=== PATIENT | female | born 1940 | race Caucasian/White ===

== ENCOUNTER → 2019-07-09 11:00 | Outpatient (BNVA) | payer MEDICARE, SELFPAY | PROVIDERS: Family Provider Family Medicine; Visit Provider Internal Medicine | DX: E11.9 Type 2 diabetes mellitus without complications (principal); K75.81 Nonalcoholic steatohepatitis (NASH); E78.5 Hyperlipidemia, unspecified; I10 Essential (primary) hypertension; E03.9 Hypothyroidism, unspecified; K21.9 Gastro-esophageal reflux disease without esophagitis; N39.41 Urge incontinence | CPT/HCPCS: 80053; 80061; 83036; 84443 ==

== ENCOUNTER 2019-07-16 13:34 | Outpatient (CLI) | payer MEDICARE, SELFPAY ==
--- NOTE | 2019-07-16 13:30 | MM_ITS ---
WS: [id number] BILATERAL SCREENING DIGITAL MAMMOGRAM WITH CAD HISTORY: Screening. COMPARISON: 07/17/2016 and 09/03/2013 Bilateral CC and MLO views submitted. Computer aided detection analyzed. Breast composition: There are scattered areas of fibroglandular density. No suspicious masses, microc alcifications or architectural distortion. Vascular calcifications. No change in the fibroglandular p attern. MM/[id number] IMPRESSION: BI-RADS: 2-Benign FOLLOW UP: 1 Year Follow-up
== END 2019-07-16 13:35 | disposition home or self-care (01) ==
PROVIDERS: PCP Internal Medicine; Visit Provider Internal Medicine
DX: Z12.31 Encounter for screening mammogram for malignant neoplasm of breast (principal)
CPT/HCPCS: 77067

== ENCOUNTER → 2020-01-12 15:27 | Outpatient (BNVA) | payer MEDICARE, SELFPAY | PROVIDERS: PCP Internal Medicine; Visit Provider Internal Medicine | DX: E11.42 Type 2 diabetes mellitus with diabetic polyneuropathy (principal) | CPT/HCPCS: 83036 ==

== ENCOUNTER → 2020-07-06 09:00 | Outpatient (BNVA) | payer MEDICARE, SELFPAY | PROVIDERS: PCP Internal Medicine; Visit Provider Internal Medicine | DX: R63.4 Abnormal weight loss (principal); E11.42 Type 2 diabetes mellitus with diabetic polyneuropathy; E03.9 Hypothyroidism, unspecified | CPT/HCPCS: 80053; 83550; 84443; 85025 ==

== ENCOUNTER → 2020-08-02 12:22 | Outpatient (BNVA) | payer MEDICARE, SELFPAY | PROVIDERS: PCP Internal Medicine; Visit Provider Internal Medicine | DX: E61.1 Iron deficiency (principal); Z20.822 Contact with and (suspected) exposure to COVID-19 | CPT/HCPCS: 87635 ==

== ENCOUNTER 2020-08-08 08:21 | Day surgery (SDC) | payer MEDICARE, SELFPAY ==
[2020-08-05 07:23] VITALS: BMI 22.7
--- NOTE | 2020-08-08 08:59 | ANES.PREANE2 ---
Pre-Anesthetic Assessment Pre-Anesthetic Assessment: Height/Weight: Height 1.68 m Weight 63.957 kg Preop Diagnosis: anemia Proposed Procedure: Operation Date: 08/08/20 10:00 Proposed Procedures p EGD 68194 61322 z12.11 e61.1(Not Applicable) - Prince Augustin MD s Colonoscopy(Not Applicable) - Prince Augustin MD Familial anesthetic complications: NOne Was Beta Tavia taken within 24 hours: Yes Was Clonidine taken within 24 hours: N/A Last intake: > 8 hrs Social: Social History: No alcohol and No tobacco Exam: Pre-Anes Outpt Exam: alert, oriented x 3, clear to auscultation bilaterally and regular rate & rhythm Airway: Cervical ROM: WNL MP: 1 Dentition: Chipped CV/HEM: CV/HEM: CAD (cABG and Stent- still takes clopidogrel) and HTN Comments: SOB w/ 4 METS, no chest pains 2015 echo CONCLUSIONS 1-Normal left ventricular cavity size. Mild left ventricular hypertrophy of concentric type. Mildly decreased left ventricular systolic function. Left ventricular ejection fraction is estimated at 50 %. Global left ventricular hypokinesis. Grade I/IV diastolic dysfunction (abnormal relaxation filling pattern), normal to mildly elevated filling pressures. 2-Moderately increased left atrial size. 3-Mildly thickened mitral valve. Moderate mitral annular calcification. No mitral valve stenosis. Trace mitral valve regurgitation. 4-There is no pericardial effusion. 5-Pulmonary artery systolic pressure is within normal limits. 6-Right atrial pressure is around 5 mm of mercury. 7-There are no prior echocardiogram studies to compare. GI: GI: GERD Metabolic: Metabolic: DM and Thyroid Anesthetic Plan: ASA status: 3 Anesthesia: MAC Risk of > 500 ml blood loss (7ml/kg in children): No PFSH Anesthesia PFSH: Medical History GERD (gastroesophageal reflux disease) History of small bowel obstruction Hyperlipidemia, unspecified Hypothyroidism Surgical History H/O bladder repair surgery x3 H/O colonoscopy History of appendectomy History of cataract surgery History of coronary artery bypass graft (~1998) History of D&C History of esophagogastroduodenoscopy (EGD) (~05/27/13) History of heart artery stent History of hysterectomy History of throat surgery (~1964) removal of precancerous growth removed Status post debridement of bone spur Family History Father Alzheimers disease Social History Smoking and tobacco status: former smoker Alcohol intake: never Household members: spouse Housing: House Marital status: History of recent travel: No Data Anesthesia Cardiac Studies: No Data to Display
[2020-08-08 09:30] VITALS: BP 180/76; PULSE 68; RESP 18; TEMP 36.6; O2SAT 95
[2020-08-08] MEDS: sodium chloride 0.9% 1,000 ML 30 ML IV (09:38)
--- NOTE | 2020-08-08 09:40 | P.HP_ITS ---
Same Day Surgery H&P Indication for Procedure/HPI DATE OF PROCEDURE: August 08, 2020 CHIEF COMPLAINT/INDICATIONFOR SURGICAL PROCEDURE: Anemia, iron deficiency iron deficiency anemia PREOP DIAGNOSIS: fe def PLANNED PROCEDRUE: Operation Date: 08/08/20 10:00 Proposed Procedures p EGD [id number] z12.11 e61.1(Not Applicable) - Prince Augustin MD s Colonoscopy(Not Applicable) - Prince Augustin MD Medications/Allergies* Home Medications Medication Instructions Recorded Confirmed Type cholecalciferol (vitamin D3) 50 2,000 unit PO QDAY 03/17/19 08/08/20 History mcg (2,000 unit) tablet docusate sodium 250 mg capsule 250 mg PO BID 03/18/19 08/08/20 History nitroglycerin 400 mcg/spray 1 spray SUBLINGUAL Q5M PRN 03/18/19 08/08/20 History translingual Allergies/Adverse Reactions Allergy/AdvReac Type Severity Reaction Status Date / Time codeine Allergy Unknown Verified 08/08/20 09:20 pentazocine [From Talwin] Allergy Unknown Verified 08/08/20 09:20 Current Medications: Generic Name Dose Route Start Last Admin Trade Name Freq PRN Reason Stop Dose Admin Sodium Chloride 1,000 mls @ 30 mls/hr 08/08/20 09:15 08/08/20 09:38 Sodium Chloride 0.9% IV 30 mls/hr .Q24H NAVEEN Administration Pertinent History/Comorbid Conditions* Medical History (Updated 07/27/20 @ 10:42 by Prince Augustin MD) GERD (gastroesophageal reflux disease) History of small bowel obstruction Hyperlipidemia, unspecified Hypothyroidism Surgical History (Updated 12/15/19 @ 09:42 by Julius Hodgson DPM) H/O bladder repair surgery x3 H/O colonoscopy History of appendectomy History of cataract surgery History of coronary artery bypass graft (~1998) History of D&C History of esophagogastroduodenoscopy (EGD) (~05/27/13) History of heart artery stent History of hysterectomy History of throat surgery (~1964) removal of precancerous growth removed Status post debridement of bone spur Family History (Updated 03/17/19 @ 08:24 by Milagros Almanzar LPN) Alzheimers disease Father Social History Smoking and tobacco status: former smoker Alcohol intake: never Household members: spouse Housing: House Marital status: History of recent travel: No Pertinent Exam Findings alert, oriented x 3, clear to auscultation bilaterally, regular rate & rhythm, operative site marked and procedure specific exam findings Recommendations Surgery/Procedure today Coding Level of Care Code Acute Administrative Appeals Tribunal Member for Lynette Nair
[2020-08-08] MEDS: ferric carboxy (IVPB) 750 MG in sodium chloride 0.9% (100 ml) 100 ML 345 MG IV (10:08)
[2020-08-08 12:06] VITALS: BP 112/57; PULSE 68; RESP 18; TEMP 36.8; O2SAT 98
[2020-08-08 12:20] VITALS: BP 118/82; PULSE 74; RESP 18; TEMP 36.2; O2SAT 98
--- NOTE | 2020-08-08 15:48 | ANE.PACU2 ---
Inpatient post-anesthesia follow up: Airway intact: Yes Vital signs: Temperature 97.2 F Pulse Rate 74 Respiratory Rate 18 Blood Pressure 118/82 Pulse Oximetry 98 Oxygen Delivery Me thod Room Air Oxygen Flow Rate Fraction of Inspir ed Oxygen Hydration adequate: Yes Nausea and vomiting: No Pain level: 1 Mental status: Baseline
== END 2020-08-08 13:25 | disposition home or self-care (01) ==
PROVIDERS: PCP Internal Medicine; Visit Provider Internal Medicine
PROC: 0DJ08ZZ Inspection of Upper Intestinal Tract, Via Natural or Artificial Opening Endoscopic (ICD-10-PCS; CPT 43235; principal; 2020-08-08 10:00)
PROC: 0DJD8ZZ Inspection of Lower Intestinal Tract, Via Natural or Artificial Opening Endoscopic (ICD-10-PCS; CPT 45378; 2020-08-08 10:00)
DX: Z12.11 Encounter for screening for malignant neoplasm of colon (principal); K57.30 Diverticulosis of large intestine without perforation or abscess without bleeding; K63.89 Other specified diseases of intestine; I25.10 Atherosclerotic heart disease of native coronary artery without angina pectoris; Z95.1 Presence of aortocoronary bypass graft; Z95.5 Presence of coronary angioplasty implant and graft; I10 Essential (primary) hypertension; K21.9 Gastro-esophageal reflux disease without esophagitis; E11.9 Type 2 diabetes mellitus without complications; E78.5 Hyperlipidemia, unspecified; E03.9 Hypothyroidism, unspecified
CPT/HCPCS: 43239; 45378; 88305; 96361; 96365; J1439; J2704; J7030

== ENCOUNTER → 2020-08-08 | Day surgery (SDC) | payer MEDICARE, SELFPAY ==
[2020-08-08 09:40] LABS: Glucose Point of Care 72 mg/dL (70-110)
== END ==
PROVIDERS: PCP Internal Medicine; Visit Provider Internal Medicine
DX: Z01.818 Encounter for other preprocedural examination (principal)
CPT/HCPCS: 36416; 82962

== ENCOUNTER → 2020-08-15 12:06 | Day surgery (SDC) | payer MEDICARE, SELFPAY ==
[2020-08-15 12:16] VITALS: BP 126/51; PULSE 77; RESP 18; TEMP 36.4; O2SAT 99
[2020-08-15] MEDS: ferric carboxy (IVPB) 750 MG in sodium chloride 0.9% (100 ml) 100 ML 345 MG IV (12:34)
== END ==
PROVIDERS: PCP Internal Medicine; Visit Provider Internal Medicine
DX: E61.1 Iron deficiency (principal)
CPT/HCPCS: 96365; J1439

== ENCOUNTER → 2020-08-30 15:45 | Outpatient (BNVA) | payer MEDICARE, SELFPAY | PROVIDERS: PCP Internal Medicine; Visit Provider Internal Medicine | DX: E61.1 Iron deficiency (principal); R63.4 Abnormal weight loss; E11.42 Type 2 diabetes mellitus with diabetic polyneuropathy | CPT/HCPCS: 80061; 83550 ==

== ENCOUNTER → 2020-09-15 11:58 | Outpatient (BNVA) | payer MEDICARE, SELFPAY | PROVIDERS: PCP Internal Medicine; Visit Provider Nurse Practitioner Family | DX: J06.9 Acute upper respiratory infection, unspecified (principal) | CPT/HCPCS: 87426 ==

== ENCOUNTER 2020-09-18 16:23 | Emergency (ER) | payer MEDICARE, SELFPAY ==
[2020-09-18 16:40] VITALS: BP 161/84; PULSE 87; RESP 35; TEMP 36.3; O2SAT 96; BMI 20.7
--- NOTE | 2020-09-18 16:45 | ECG_ITS ---
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
--- NOTE | 2020-09-18 17:02 | W.ED.COVID ---
Documented by User: Carlton Chowdhury DO 09/18/20 18:14 HPI - COVID General: Chief Complaint: COVID symptoms Stated Complaint: confused,sob Time Seen by Provider: 09/18/20 16:43 Triage information: Has fever, cough or shortness of breath. Exposure to COVID + person last 14 days History of Present Illness: HPI Narrative: 79-year-old female presents emergency room with complaints of shortness of breath last several days she is extremely anxious she is appears to be hyperventilating at the time. She states she is scared and confused. Nurse found her to be alert and oriented on triage assessment. Her did test test positive for Covid recently she was tested with a rapid antigen 3 days ago and it was negative. MD complaint: reported COVID exposure and has COVID symptoms Prior covid testing: yes, results known Prior testing date: 09/15/20 COVID 19 common symptoms: positive fever(s), chills, cough, non-productive cough, dyspnea, fatigue, body aches, nasal congestion and nausea COVID 19 other sytmptoms: negative chest pain Onset (ago): day(s) Severity: mild Pertinent comorbid conditions: diabetes and heart disease Treatment prior to arrival: none COVID Results: SARS-CoV-2 Antigen (Rapid) Negative (Negative) 09/18/20 18:03 09/18/20 Nasal/Oral Coronavirus 2019 PCR Not detected 08/02/20 12:22 08/02/20 Review of Systems Const: Reports: fever(s), chills, body aches and fatigue ENMT: Reports: nasal congestion Card: Denies: chest pain, edema, dyspnea on exertion or orthopnea Resp: Reports: dyspnea and non-productive cough GI: Reports: nausea : Denies: flank pain, difficulty voiding, dysuria, urinary frequency or urinary urgency Skin/Breast: Denies: rash or pruritus PFSH ED PFSH: Medical History GERD (gastroesophageal reflux disease) History of small bowel obstruction Hyperlipidemia, unspecified Hypothyroidism Surgical History H/O bladder repair surgery x3 H/O colonoscopy History of appendectomy History of cataract surgery History of coronary artery bypass graft (~1998) History of D&C History of esophagogastroduodenoscopy (EGD) (~05/27/13) History of heart artery stent History of hysterectomy History of throat surgery (~1964) removal of precancerous growth removed Status post debridement of bone spur Family History Father Alzheimers disease Social History Smoking and tobacco status: former smoker Alcohol intake: never Household members: spouse Housing: House Marital status: History of recent travel: No Physical Exam Const: COMMON NORMALS: no acute distress GENERAL APPEARANCE: cooperative and comfortable ORIENTATION/CONSCIOUSNESS: Yes awake, Yes oriented to person, Yes oriented to place and Yes oriented to time HENMT: COMMON NORMALS: normocephalic, atraumatic and hearing grossly normal bilaterally HEAD & SCALP: normocephalic and atraumatic Neck/C-Spine: COMMON NORMALS: no JVD Resp: COMMON NORMALS: normal respiratory effort, No retractions, No use of accessory muscles and clear to auscultation bilaterally AUSCULTATION: clear to auscultation bilaterally Cardio: COMMON NORMALS: no JVD, regular rate, regular rhythm and No murmurs present (Cardio) RATE: regular rate RHYTHM: regular rhythm GI: COMMON NORMALS: Soft to palpation and No hepatosplenomegaly present AUSCULTATION: Yes normoactive bowel sounds PALPATION: Yes Soft to palpation, No Tenderness to palpation present (GI), No Guarding due to palpation present (GI) and Yes No hepatosplenomegaly present Extremity: COMMON NORMALS: normal to inspection, capillary refill normal, no clubbing, cyanosis or edema, no calf tenderness and no pedal edema Neuro: SENSORIUM/ORIENTATION: Yes oriented to person, Yes oriented to place and Yes oriented to time Skin: COMMON NORMALS: no rashes or lesions noted GENERAL SKIN EXAM: no rashes or lesions noted Course Vital Signs: Vital signs: Vital Signs Temperature 97.4 F L 09/18/20 16:40 Pulse Rate 88 09/18/20 21:09 Respiratory Rate 22 H 09/18/20 21:09 Blood Pressure 157/80 09/18/20 21:09 Pulse Oximetry 96 09/18/20 21:09 MDM - COVID MDM Narrative: Medical decision making narrative: Turned over to Dr. Kee at change of shift see his note for final diagnosis and disposition Lab Data: Labs: Lab Results 09/18/20 09/18/20 09/18/20 Range/Units 17:05 18:03 18:03 WBC 11.6 H (4.0-10.0) 10^3/ uL RBC 5.00 (4.1-5.3) 10^6/u L Hgb 13.8 (11.5-15.3) g/dL Hct 42.3 (37.0-47.0) % MCV 84.6 (81-99) fL MCH 27.6 L (28.0-34.0) pg MCHC 32.6 (30.0-36.0) g/dL RDW 19.2 H (12.1-15.1) % Plt Count 365 (130-400) 10^3/c mm MPV 9.6 (7.4-10.4) fL Neut % (Auto) 72.0 % Lymph % (Auto) 15.9 % Brooks % (Auto) 10.1 % Eos % (Auto) 1.2 % Baso % (Auto) 0.3 % Neut # (Auto) 8.36 H (1.8-7.7) 10^3/u L Lymph # (Auto) 1.9 (0.8-4.8) 10^3/u L Brooks # (Auto) 1.2 H (0.2-0.9) 10^3/u L Eos # (Auto) 0.1 (0.0-0.8) 10^3/u L Baso # (Auto) 0.0 (0.0-0.1) 10^3/u L Nucleated RBC % (a uto) 0 % Nucleated RBCs # 0.0 /100WBC Specimen Type Arterial Sample Site Brachial, right ABG pH 7.50 H (7.35-7.45) ABG pCO2 31.7 L (35-45) mmHg ABG pO2 61.8 L (80.0-100.0) mmH g ABG HCO3 24.9 (22-26) mmol/L ABG O2 Saturation 93.4 ABG Base Excess 2.4 H (-2.0-2.0) mmol/ L Dale Test Pos A-a O2 Gradient 6.3 (5-10) mmHg Hematocrit 42.4 (37-47) % Hgb O2 Saturation 91.8 L (95-100) % Carboxyhemoglobin 0.9 (0.4-20.1) %THgb Methemoglobin 0.9 (0.4-1.5) % Total Hemoglobin 13.8 (12-16) g/dL Sodium 131.0 (131-143) mmol/L Potassium 3.7 (3.5-5.0) mmol/L Glucose 228.0 H (70-115) mg/dL Ionized Calcium 1.1 (1.1-1.4) mmol/L O2 Delivery Device Room air Lip Cutter And Scorer ID jmn Chloride (98-107) mmol/L Carbon Dioxide (22-29) mmol/L Anion Gap (5-19) BUN (8-23) mg/dL Creatinine (0.5-0.9) mg/dL GFR Calculation Calculated Osmolal ity (285-295) mOsm/k g Lactic Acid 1.7 (0.5-2.2) mmol/L Calcium (8.5-10.5) mg/dL Total Bilirubin (0.15-1.2) mg/dL AST (0-32) U/L ALT (0-33) U/L Alkaline Phosphata se (35-105) IU/L Creatine Kinase (26-192) U/L Troponin T Baselin e (0-10) ng/L Total Protein (6.6-8.7) g/dL Albumin (3.5-5.2) g/dL Globulin (1.3-4.6) g/dL Lipase (13-60) U/L Urine Color (Yellow) Urine Appearance (CLEAR) Urine pH (5-7) Ur Specific Gravit y (1.005-1.030) Urine Protein (Negative) Urine Glucose (UA) (Normal) Urine Ketones (Negative) Urine Blood (Negative) Urine Nitrate (Negative) Urine Bilirubin (Negative) Urine Urobilinogen (Negative) mg/dL Ur Leukocyte Tamiko ase (Negative) Urine RBC (0-2) /hpf Urine WBC (0-5) /hpf Ur Squamous Epith Cells (0-5) /hpf Amorphous Sediment Urine Bacteria (NONE) /hpf SARS-CoV-2 Ag (Rap id) (Negative) 09/18/20 09/18/20 09/18/20 Range/Units 18:03 18:03 18:03 WBC (4.0-10.0) 10^3/ uL RBC (4.1-5.3) 10^6/u L Hgb (11.5-15.3) g/dL Hct (37.0-47.0) % MCV (81-99) fL MCH (28.0-34.0) pg MCHC (30.0-36.0) g/dL RDW (12.1-15.1) % Plt Count (130-400) 10^3/c mm MPV (7.4-10.4) fL Neut % (Auto) % Lymph % (Auto) % Brooks % (Auto) % Eos % (Auto) % Baso % (Auto) % Neut # (Auto) (1.8-7.7) 10^3/u L Lymph # (Auto) (0.8-4.8) 10^3/u L Brooks # (Auto) (0.2-0.9) 10^3/u L Eos # (Auto) (0.0-0.8) 10^3/u L Baso # (Auto) (0.0-0.1) 10^3/u L Nucleated RBC % (a uto) % Nucleated RBCs # /100WBC Specimen Type Sample Site ABG pH (7.35-7.45) ABG pCO2 (35-45) mmHg ABG pO2 (80.0-100.0) mmH g ABG HCO3 (22-26) mmol/L ABG O2 Saturation ABG Base Excess (-2.0-2.0) mmol/ L Dale Test A-a O2 Gradient (5-10) mmHg Hematocrit (37-47) % Hgb O2 Saturation (95-100) % Carboxyhemoglobin (0.4-20.1) %THgb Methemoglobin (0.4-1.5) % Total Hemoglobin (12-16) g/dL Sodium 130 L (131-143) mmol/L Potassium 4.0 (3.5-5.0) mmol/L Glucose 197 H (70-115) mg/dL Ionized Calcium (1.1-1.4) mmol/L O2 Delivery Device Lip Cutter And Scorer ID Chloride 93 L (98-107) mmol/L Carbon Dioxide 24 (22-29) mmol/L Anion Gap 17.0 (5-19) BUN 11 (8-23) mg/dL Creatinine 0.7 (0.5-0.9) mg/dL GFR Calculation Not Reportable Calculated Osmolal ity 275 L (285-295) mOsm/k g Lactic Acid (0.5-2.2) mmol/L Calcium 8.5 (8.5-10.5) mg/dL Total Bilirubin 0.4 (0.15-1.2) mg/dL AST 14 (0-32) U/L ALT 11 (0-33) U/L Alkaline Phosphata se 102 (35-105) IU/L Creatine Kinase 32 (26-192) U/L Troponin T Baselin e 14 H (0-10) ng/L Total Protein 6.9 (6.6-8.7) g/dL Albumin 3.5 (3.5-5.2) g/dL Globulin 3.4 (1.3-4.6) g/dL Lipase 23 (13-60) U/L Urine Color (Yellow) Urine Appearance (CLEAR) Urine pH (5-7) Ur Specific Gravit y (1.005-1.030) Urine Protein (Negative) Urine Glucose (UA) (Normal) Urine Ketones (Negative) Urine Blood (Negative) Urine Nitrate (Negative) Urine Bilirubin (Negative) Urine Urobilinogen (Negative) mg/dL Ur Leukocyte Tamiko ase (Negative) Urine RBC (0-2) /hpf Urine WBC (0-5) /hpf Ur Squamous Epith Cells (0-5) /hpf Amorphous Sediment Urine Bacteria (NONE) /hpf SARS-CoV-2 Ag (Rap id) Negative (Negative) 09/18/20 Range/Units 18:45 WBC (4.0-10.0) 10^3/ uL RBC (4.1-5.3) 10^6/u L Hgb (11.5-15.3) g/dL Hct (37.0-47.0) % MCV (81-99) fL MCH (28.0-34.0) pg MCHC (30.0-36.0) g/dL RDW (12.1-15.1) % Plt Count (130-400) 10^3/c mm MPV (7.4-10.4) fL Neut % (Auto) % Lymph % (Auto) % Brooks % (Auto) % Eos % (Auto) % Baso % (Auto) % Neut # (Auto) (1.8-7.7) 10^3/u L Lymph # (Auto) (0.8-4.8) 10^3/u L Brooks # (Auto) (0.2-0.9) 10^3/u L Eos # (Auto) (0.0-0.8) 10^3/u L Baso # (Auto) (0.0-0.1) 10^3/u L Nucleated RBC % (a uto) % Nucleated RBCs # /100WBC Specimen Type Sample Site ABG pH (7.35-7.45) ABG pCO2 (35-45) mmHg ABG pO2 (80.0-100.0) mmH g ABG HCO3 (22-26) mmol/L ABG O2 Saturation ABG Base Excess (-2.0-2.0) mmol/ L Dale Test A-a O2 Gradient (5-10) mmHg Hematocrit (37-47) % Hgb O2 Saturation (95-100) % Carboxyhemoglobin (0.4-20.1) %THgb Methemoglobin (0.4-1.5) % Total Hemoglobin (12-16) g/dL Sodium (131-143) mmol/L Potassium (3.5-5.0) mmol/L Glucose (70-115) mg/dL Ionized Calcium (1.1-1.4) mmol/L O2 Delivery Device Lip Cutter And Scorer ID Chloride (98-107) mmol/L Carbon Dioxide (22-29) mmol/L Anion Gap (5-19) BUN (8-23) mg/dL Creatinine (0.5-0.9) mg/dL GFR Calculation Calculated Osmolal ity (285-295) mOsm/k g Lactic Acid (0.5-2.2) mmol/L Calcium (8.5-10.5) mg/dL Total Bilirubin (0.15-1.2) mg/dL AST (0-32) U/L ALT (0-33) U/L Alkaline Phosphata se (35-105) IU/L Creatine Kinase (26-192) U/L Troponin T Baselin e (0-10) ng/L Total Protein (6.6-8.7) g/dL Albumin (3.5-5.2) g/dL Globulin (1.3-4.6) g/dL Lipase (13-60) U/L Urine Color Yellow (Yellow) Urine Appearance Sl hazy (CLEAR) Urine pH 7 (5-7) Ur Specific Gravit y 1.005 (1.005-1.030) Urine Protein Neg (Negative) Urine Glucose (UA) 1+ (Normal) Urine Ketones Negative (Negative) Urine Blood Neg (Negative) Urine Nitrate Positive H (Negative) Urine Bilirubin Neg (Negative) Urine Urobilinogen Norm (Negative) mg/dL Ur Leukocyte Tamiko ase Trace H (Negative) Urine RBC None (0-2) /hpf Urine WBC 10-15 H (0-5) /hpf Ur Squamous Epith Cells 0-4 H (0-5) /hpf Amorphous Sediment Not Reportable Urine Bacteria 3+ H (NONE) /hpf SARS-CoV-2 Ag (Rap id) (Negative) COVID Results: SARS-CoV-2 Antigen (Rapid) Negative (Negative) 09/18/20 18:03 09/18/20 Nasal/Oral Coronavirus 2019 PCR Not detected 08/02/20 12:22 08/02/20 Discharge Plan Discharge Patient Disposition: Home Clinical Impression: Urinary tract infection Qualifiers: Urinary tract infection type: acute cystitis Hematuria presence: without hematuria Qualified Code(s): N30.00 - Acute cystitis without hematuria Condition: Stable Prescriptions: New Macrobid 100 mg capsule 100 mg PO Q12H 7 Days Qty: 14 RF: 0 No Action cholecalciferol (vitamin D3) 2,000 unit tablet 2,000 unit PO DAILY RF: 0 nitroglycerin 400 mcg/spray spray,non-aerosol See Rx Instructions .ROUTE .COMPLEX RF: 0 (DME) DIABETIC SHOES WITH MOLDED INSERTS See Rx Instructions .Route .MEDSUPPLY Qty: 1 RF: 0 (DME) lancets [Accu-Chek Softclix Lancets] Misc See Rx Instructions .ROUTE .MEDSUPPLY Qty: 100 RF: 6 Accu-Chek Kaye Plus test strp Strip See Rx Instructions .ROUTE .COMPLEX Qty: 100 RF: 0 (DME) pen needle, diabetic [Unifine Pentips] 32 gauge x 5/32 needle See Rx Instructions .ROUTE .MEDSUPPLY Qty: 100 RF: 5 Tylenol Extra Strength 500 mg Tablet 1,000 mg PO PRN RF: 0 Colace 100 mg Capsule 200 mg PO BEDTIME RF: 0 Dayquil Caps 2 cap PO PRN RF: 0 Nyquil Caps 2 cap PO PRN RF: 0 atorvastatin 40 mg tablet 40 mg PO QPM RF: 0 tolterodine 4 mg capsule,extended release 24hr 4 mg PO BEDTIME RF: 0 clopidogrel 75 mg tablet 75 mg PO QAM RF: 0 levothyroxine 25 mcg tablet 25 mcg PO QAM RF: 0 trazodone 300 mg tablet 300 mg PO BEDTIME RF: 0 irbesartan 150 mg tablet 150 mg PO DAILY@12 RF: 0 insulin detemir U-100 100 unit/mL (3 mL) insulin pen 12 unit SUBCUT BEDTIME RF: 0 Bystolic 5 mg tablet 2.5 mg PO QAM RF: 0 Dexilant 60 mg capsule,biphase delayed releas 60 mg PO QAM RF: 0 Discharge Orders: Discharge ED (Routine); Ordered 09/18/20 Ordered By: Abhi Kee Referrals: Prince Augustin MD [Primary Care Provider] - 1-3 days Patient Instructions: Urinary Tract Infection in Women (ED) Activity Restrictions/Additional Instructions: Return for fever greater than 100, worsening shortness of breath, worsening mental status, vomiting liquids or medications, any other concerning symptoms. A confirmatory test for COVID-19 has been sent, and should be back within 48 hours. Coding Level of Care Code ED Fractionating Still Operator for Chg Fwd Exam Comprehensive Documented by User: Abhi eKe DO 09/19/20 01:18 HPI - COVID General: Chief Complaint: COVID symptoms Stated Complaint: confused,sob Time Seen by Provider: 09/18/20 16:43 COVID Results: SARS-CoV-2 Antigen (Rapid) Negative (Negative) 09/18/20 18:03 09/18/20 Nasal/Oral Coronavirus 2019 PCR Not detected 08/02/20 12:22 08/02/20 [facility] ED PFS: Medical History GERD (gastroesophageal reflux disease) History of small bowel obstruction Hyperlipidemia, unspecified Hypothyroidism Surgical History H/O bladder repair surgery x3 H/O colonoscopy History of appendectomy History of cataract surgery History of coronary artery bypass graft (~1998) History of D&C History of esophagogastroduodenoscopy (EGD) (~05/27/13) History of heart artery stent History of hysterectomy History of throat surgery (~1964) removal of precancerous growth removed Status post debridement of bone spur Family History Father Alzheimers disease Social History Smoking and tobacco status: former smoker Alcohol intake: never Household members: spouse Housing: House Marital status: History of recent travel: No Course Vital Signs: Vital signs: Vital Signs Temperature 97.4 F L 09/18/20 16:40 Pulse Rate 88 09/18/20 21:09 Respiratory Rate 22 H 09/18/20 21:09 Blood Pressure 157/80 09/18/20 21:09 Pulse Oximetry 96 09/18/20 21:09 MDM - COVID MDM Narrative: Medical decision making narrative: 79-year-old lady with mild shortness of breath, some cough, and nervousness. Her has COVID-19. This will be her second negative antigen test today. Her chest x-ray is negative. Her white blood cell count is 11.6. Other laboratory is benign. Troponin is slightly elevated. The patient does not have any chest pain. Her EKG shows atrial fibrillation with no acute ST elevation or change otherwise. Conley is normal. Rate is controlled at 90. She does appear to have a nitrate positive urinary tract infection, which we will treat. Lab Data: Labs: Lab Results 09/18/20 09/18/20 09/18/20 Range/Units 17:05 18:03 18:03 WBC 11.6 H (4.0-10.0) 10^3/ uL RBC 5.00 (4.1-5.3) 10^6/u L Hgb 13.8 (11.5-15.3) g/dL Hct 42.3 (37.0-47.0) % MCV 84.6 (81-99) fL MCH 27.6 L (28.0-34.0) pg MCHC 32.6 (30.0-36.0) g/dL RDW 19.2 H (12.1-15.1) % Plt Count 365 (130-400) 10^3/c mm MPV 9.6 (7.4-10.4) fL Neut % (Auto) 72.0 % Lymph % (Auto) 15.9 % Brooks % (Auto) 10.1 % Eos % (Auto) 1.2 % Baso % (Auto) 0.3 % Neut # (Auto) 8.36 H (1.8-7.7) 10^3/u L Lymph # (Auto) 1.9 (0.8-4.8) 10^3/u L Brooks # (Auto) 1.2 H (0.2-0.9) 10^3/u L Eos # (Auto) 0.1 (0.0-0.8) 10^3/u L Baso # (Auto) 0.0 (0.0-0.1) 10^3/u L Nucleated RBC % (a uto) 0 % Nucleated RBCs # 0.0 /100WBC Specimen Type Arterial Sample Site Brachial, right ABG pH 7.50 H (7.35-7.45) ABG pCO2 31.7 L (35-45) mmHg ABG pO2 61.8 L (80.0-100.0) mmH g ABG HCO3 24.9 (22-26) mmol/L ABG O2 Saturation 93.4 ABG Base Excess 2.4 H (-2.0-2.0) mmol/ L Dale Test Pos A-a O2 Gradient 6.3 (5-10) mmHg Hematocrit 42.4 (37-47) % Hgb O2 Saturation 91.8 L (95-100) % Carboxyhemoglobin 0.9 (0.4-20.1) %THgb Methemoglobin 0.9 (0.4-1.5) % Total Hemoglobin 13.8 (12-16) g/dL Sodium 131.0 (131-143) mmol/L Potassium 3.7 (3.5-5.0) mmol/L Glucose 228.0 H (70-115) mg/dL Ionized Calcium 1.1 (1.1-1.4) mmol/L O2 Delivery Device Room air Lip Cutter And Scorer ID jmn Chloride (98-107) mmol/L Carbon Dioxide (22-29) mmol/L Anion Gap (5-19) BUN (8-23) mg/dL Creatinine (0.5-0.9) mg/dL GFR Calculation Calculated Osmolal ity (285-295) mOsm/k g Lactic Acid 1.7 (0.5-2.2) mmol/L Calcium (8.5-10.5) mg/dL Total Bilirubin (0.15-1.2) mg/dL AST (0-32) U/L ALT (0-33) U/L Alkaline Phosphata se (35-105) IU/L Creatine Kinase (26-192) U/L Troponin T Baselin e (0-10) ng/L Total Protein (6.6-8.7) g/dL Albumin (3.5-5.2) g/dL Globulin (1.3-4.6) g/dL Lipase (13-60) U/L Urine Color (Yellow) Urine Appearance (CLEAR) Urine pH (5-7) Ur Specific Gravit y (1.005-1.030) Urine Protein (Negative) Urine Glucose (UA) (Normal) Urine Ketones (Negative) Urine Blood (Negative) Urine Nitrate (Negative) Urine Bilirubin (Negative) Urine Urobilinogen (Negative) mg/dL Ur Leukocyte Tamiko ase (Negative) Urine RBC (0-2) /hpf Urine WBC (0-5) /hpf Ur Squamous Epith Cells (0-5) /hpf Amorphous Sediment Urine Bacteria (NONE) /hpf SARS-CoV-2 Ag (Rap id) (Negative) 09/18/20 09/18/20 09/18/20 Range/Units 18:03 18:03 18:03 WBC (4.0-10.0) 10^3/ uL RBC (4.1-5.3) 10^6/u L Hgb (11.5-15.3) g/dL Hct (37.0-47.0) % MCV (81-99) fL MCH (28.0-34.0) pg MCHC (30.0-36.0) g/dL RDW (12.1-15.1) % Plt Count (130-400) 10^3/c mm MPV (7.4-10.4) fL Neut % (Auto) % Lymph % (Auto) % Brooks % (Auto) % Eos % (Auto) % Baso % (Auto) % Neut # (Auto) (1.8-7.7) 10^3/u L Lymph # (Auto) (0.8-4.8) 10^3/u L Brooks # (Auto) (0.2-0.9) 10^3/u L Eos # (Auto) (0.0-0.8) 10^3/u L Baso # (Auto) (0.0-0.1) 10^3/u L Nucleated RBC % (a uto) % Nucleated RBCs # /100WBC Specimen Type Sample Site ABG pH (7.35-7.45) ABG pCO2 (35-45) mmHg ABG pO2 (80.0-100.0) mmH g ABG HCO3 (22-26) mmol/L ABG O2 Saturation ABG Base Excess (-2.0-2.0) mmol/ L Dale Test A-a O2 Gradient (5-10) mmHg Hematocrit (37-47) % Hgb O2 Saturation (95-100) % Carboxyhemoglobin (0.4-20.1) %THgb Methemoglobin (0.4-1.5) % Total Hemoglobin (12-16) g/dL Sodium 130 L (131-143) mmol/L Potassium 4.0 (3.5-5.0) mmol/L Glucose 197 H (70-115) mg/dL Ionized Calcium (1.1-1.4) mmol/L O2 Delivery Device Lip Cutter And Scorer ID Chloride 93 L (98-107) mmol/L Carbon Dioxide 24 (22-29) mmol/L Anion Gap 17.0 (5-19) BUN 11 (8-23) mg/dL Creatinine 0.7 (0.5-0.9) mg/dL GFR Calculation Not Reportable Calculated Osmolal ity 275 L (285-295) mOsm/k g Lactic Acid (0.5-2.2) mmol/L Calcium 8.5 (8.5-10.5) mg/dL Total Bilirubin 0.4 (0.15-1.2) mg/dL AST 14 (0-32) U/L ALT 11 (0-33) U/L Alkaline Phosphata se 102 (35-105) IU/L Creatine Kinase 32 (26-192) U/L Troponin T Baselin e 14 H (0-10) ng/L Total Protein 6.9 (6.6-8.7) g/dL Albumin 3.5 (3.5-5.2) g/dL Globulin 3.4 (1.3-4.6) g/dL Lipase 23 (13-60) U/L Urine Color (Yellow) Urine Appearance (CLEAR) Urine pH (5-7) Ur Specific Gravit y (1.005-1.030) Urine Protein (Negative) Urine Glucose (UA) (Normal) Urine Ketones (Negative) Urine Blood (Negative) Urine Nitrate (Negative) Urine Bilirubin (Negative) Urine Urobilinogen (Negative) mg/dL Ur Leukocyte Tamiko ase (Negative) Urine RBC (0-2) /hpf Urine WBC (0-5) /hpf Ur Squamous Epith Cells (0-5) /hpf Amorphous Sediment Urine Bacteria (NONE) /hpf SARS-CoV-2 Ag (Rap id) Negative (Negative) 09/18/20 Range/Units 18:45 WBC (4.0-10.0) 10^3/ uL RBC (4.1-5.3) 10^6/u L Hgb (11.5-15.3) g/dL Hct (37.0-47.0) % MCV (81-99) fL MCH (28.0-34.0) pg MCHC (30.0-36.0) g/dL RDW (12.1-15.1) % Plt Count (130-400) 10^3/c mm MPV (7.4-10.4) fL Neut % (Auto) % Lymph % (Auto) % Brooks % (Auto) % Eos % (Auto) % Baso % (Auto) % Neut # (Auto) (1.8-7.7) 10^3/u L Lymph # (Auto) (0.8-4.8) 10^3/u L Brooks # (Auto) (0.2-0.9) 10^3/u L Eos # (Auto) (0.0-0.8) 10^3/u L Baso # (Auto) (0.0-0.1) 10^3/u L Nucleated RBC % (a uto) % Nucleated RBCs # /100WBC Specimen Type Sample Site ABG pH (7.35-7.45) ABG pCO2 (35-45) mmHg ABG pO2 (80.0-100.0) mmH g ABG HCO3 (22-26) mmol/L ABG O2 Saturation ABG Base Excess (-2.0-2.0) mmol/ L Dale Test A-a O2 Gradient (5-10) mmHg Hematocrit (37-47) % Hgb O2 Saturation (95-100) % Carboxyhemoglobin (0.4-20.1) %THgb Methemoglobin (0.4-1.5) % Total Hemoglobin (12-16) g/dL Sodium (131-143) mmol/L Potassium (3.5-5.0) mmol/L Glucose (70-115) mg/dL Ionized Calcium (1.1-1.4) mmol/L O2 Delivery Device Lip Cutter And Scorer ID Chloride (98-107) mmol/L Carbon Dioxide (22-29) mmol/L Anion Gap (5-19) BUN (8-23) mg/dL Creatinine (0.5-0.9) mg/dL GFR Calculation Calculated Osmolal ity (285-295) mOsm/k g Lactic Acid (0.5-2.2) mmol/L Calcium (8.5-10.5) mg/dL Total Bilirubin (0.15-1.2) mg/dL AST (0-32) U/L ALT (0-33) U/L Alkaline Phosphata se (35-105) IU/L Creatine Kinase (26-192) U/L Troponin T Baselin e (0-10) ng/L Total Protein (6.6-8.7) g/dL Albumin (3.5-5.2) g/dL Globulin (1.3-4.6) g/dL Lipase (13-60) U/L Urine Color Yellow (Yellow) Urine Appearance Sl hazy (CLEAR) Urine pH 7 (5-7) Ur Specific Gravit y 1.005 (1.005-1.030) Urine Protein Neg (Negative) Urine Glucose (UA) 1+ (Normal) Urine Ketones Negative (Negative) Urine Blood Neg (Negative) Urine Nitrate Positive H (Negative) Urine Bilirubin Neg (Negative) Urine Urobilinogen Norm (Negative) mg/dL Ur Leukocyte Tamiko ase Trace H (Negative) Urine RBC None (0-2) /hpf Urine WBC 10-15 H (0-5) /hpf Ur Squamous Epith Cells 0-4 H (0-5) /hpf Amorphous Sediment Not Reportable Urine Bacteria 3+ H (NONE) /hpf SARS-CoV-2 Ag (Rap id) (Negative) COVID Results: SARS-CoV-2 Antigen (Rapid) Negative (Negative) 09/18/20 18:03 09/18/20 Nasal/Oral Coronavirus 2019 PCR Not detected 08/02/20 12:22 08/02/20 Discharge Plan Discharge Patient Disposition: Home Clinical Impression: Urinary tract infection Qualifiers: Urinary tract infection type: acute cystitis Hematuria presence: without hematuria Qualified Code(s): N30.00 - Acute cystitis without hematuria Condition: Stable Prescriptions: New Macrobid 100 mg capsule 100 mg PO Q12H 7 Days Qty: 14 RF: 0 No Action cholecalciferol (vitamin D3) 2,000 unit tablet 2,000 unit PO DAILY RF: 0 nitroglycerin 400 mcg/spray spray,non-aerosol See Rx Instructions .ROUTE .COMPLEX RF: 0 (DME) DIABETIC SHOES WITH MOLDED INSERTS See Rx Instructions .Route .MEDSUPPLY Qty: 1 RF: 0 (DME) lancets [Accu-Chek Softclix Lancets] Misc See Rx Instructions .ROUTE .MEDSUPPLY Qty: 100 RF: 6 Accu-Chek Kaye Plus test strp Strip See Rx Instructions .ROUTE .COMPLEX Qty: 100 RF: 0 (DME) pen needle, diabetic [Unifine Pentips] 32 gauge x 5/32 needle See Rx Instructions .ROUTE .MEDSUPPLY Qty: 100 RF: 5 Tylenol Extra Strength 500 mg Tablet 1,000 mg PO PRN RF: 0 Colace 100 mg Capsule 200 mg PO BEDTIME RF: 0 Dayquil Caps 2 cap PO PRN RF: 0 Nyquil Caps 2 cap PO PRN RF: 0 atorvastatin 40 mg tablet 40 mg PO QPM RF: 0 tolterodine 4 mg capsule,extended release 24hr 4 mg PO BEDTIME RF: 0 clopidogrel 75 mg tablet 75 mg PO QAM RF: 0 levothyroxine 25 mcg tablet 25 mcg PO QAM RF: 0 trazodone 300 mg tablet 300 mg PO BEDTIME RF: 0 irbesartan 150 mg tablet 150 mg PO DAILY@12 RF: 0 insulin detemir U-100 100 unit/mL (3 mL) insulin pen 12 unit SUBCUT BEDTIME RF: 0 Bystolic 5 mg tablet 2.5 mg PO QAM RF: 0 Dexilant 60 mg capsule,biphase delayed releas 60 mg PO QAM RF: 0 Discharge Orders: Discharge ED (Routine); Ordered 09/18/20 Ordered By: Abhi Kee Referrals: Prince Augustin MD [Primary Care Provider] - 1-3 days Patient Instructions: Urinary Tract Infection in Women (ED) Activity Restrictions/Additional Instructions: Return for fever greater than 100, worsening shortness of breath, worsening mental status, vomiting liquids or medications, any other concerning symptoms. A confirmatory test for COVID-19 has been sent, and should be back within 48 hours. Coding Level of Care Code ED Fractionating Still Operator for Lynette Fwd Exam Comprehensive
--- NOTE | 2020-09-18 17:08 | XRR_ITS ---
PROCEDURE INFORMATION: Exam: XR Chest Exam date and time: 09/18/2020 5:08 PM Age: 79 years old Clinical indication: Cough and shortness of breath; Prior surgery; Surgery type: Cardiac stents; Patient HX: Covid symptoms; Additional info: Dyspnea/cough TECHNIQUE: Imaging protocol: XR of the chest. Views: 1 view. COMPARISON: CR Chest 2 views* [id number] 07/05/2016 10:44 AM FINDINGS: Lungs: Unremarkable. No consolidation. Pleural spaces: Elevated left hemidiaphragm is seen.. No pleural effusion. No pneumothorax. Heart/Mediastinum: Unremarkable. No cardiomegaly. Bones/joints: Sternotomy wires are in place. Other findings: similar findings seen compared to prior XR/XR chest 1V portable [id number] IMPRESSION: 1. No acute findings. 2. Elevated left hemidiaphragm 3. Sternotomy wires are in place
[2020-09-18 17:16] LABS: ABG PCO2 31.7 mmHg (35-45); Alveolar-Arterial Oxygen Gradi 6.3 mmHg (5-10); Arterial Blood Gas Hematocrit 42.4 % (37-47); Base Excess ABG 2.4 mmol/L (-2.0-2.0); Blood Gas Allen Test Pos; Blood Gas Sample Site Brachial, right; Blood Gas Sample Type Arterial; Carboxyhemoglobin 0.9 %THgb (0.4-20.1); HCO3 ABG 24.9 mmol/L (22-26); HGB O2 Sat 91.8 % (95-100); Ionized Calcium Level - ABG 1.1 mmol/L (1.1-1.4); Methemoglobin 0.9 % (0.4-1.5); Oxygen Device ROOM AIR; Oxygen Saturation ABG 93.4; PO2 ABG 61.8 mmHg (80.0-100.0); Potassium Level - ABG 3.7 mmol/L (3.5-5.0); Total Hemoglobin 13.8 g/dL (12-16)
[2020-09-18 18:14] LABS: Basophils % 0.3 %; Eosinophils # 0.1 10^3/uL (0.0-0.8); Eosinophils % 1.2 %; Hematocrit 42.3 % (37.0-47.0); Hemoglobin 13.8 g/dL (11.5-15.3); Lymphocytes # 1.9 10^3/uL (0.8-4.8); Lymphocytes % 15.9 %; Mean Corpuscular HGB Conc 32.6 g/dL (30.0-36.0); Mean Corpuscular Hemoglobin 27.6 pg (28.0-34.0); Mean Corpuscular Volume 84.6 fL (81-99); Mean Platelet Volume 9.6 fL (7.4-10.4); Monocytes # 1.2 10^3/uL (0.2-0.9); Monocytes % 10.1 %; Neutrophils # 8.36 10^3/uL (1.8-7.7); Nucleated Red Blood Cells % 0 %; Platelet Count 365 10^3/cmm (130-400); Red Cell Distribution Width 19.2 % (12.1-15.1); White Blood Count 11.6 10^3/uL (4.0-10.0)
[2020-09-18 18:37] LABS: Lactic Sepsis W/Reflex 1.7 mmol/L (0.5-2.2)
[2020-09-18 18:41] LABS: SARS Covid-2 Antigen Negative (Negative)
--- NOTE | 2020-09-18 18:45 | ECG_ITS ---
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1940 Requested By: Carlton Franz Order Number: [id number] Reading MD: AVELINO PETERSON Measurements Intervals [place] Rate: 90 P: DC: QRS: 43 QRSD: 94 T: 55 QT: 366 QTc: 448 Interpretive Statements ATRIAL FIBRILLATION MINIMAL ST DEPRESSION [0.025+ mV ST DEPRESSION] ABNORMAL RHYTHM ECG WARNING: DATA QUALITY MAY AFFECT INTERPRETATION Compared to ECG 09/18/2020 18:06:57 ST (T wave) deviation now present Sinus rhythm no longer present Short DC interval no longer present Electronically Signed On 09-19-2020 23:37:33 CDT by AVELINO PETERSON [email or web address] memorial hospitalIntelligrouppromedica fostoria community [email or web address]/store/[id number]
[2020-09-18 18:48] LABS: Alanine Aminotransferase 11 U/L (0-33); Albumin Level 3.5 g/dL (3.5-5.2); Alkaline Phosphatase 102 IU/L (35-105); Aspartate Amino Transferase 14 U/L (0-32); Blood Urea Nitrogen 11 mg/dL (8-23); Calcium 8.5 mg/dL (8.5-10.5); Carbon Dioxide 24 mmol/L (22-29); Chloride 93 mmol/L (98-107); Creatine Phosphokinase 32 U/L (26-192); Globulin 3.4 g/dL (1.3-4.6); Glucose 197 mg/dL (65-115); Lipase 23 U/L (13-60); Osmolality Calculated 275 mOsm/kg (285-295); Sodium 130 mmol/L (136-145); Total Bilirubin 0.4 mg/dL (0.15-1.2); Total Protein 6.9 g/dL (6.6-8.7)
[2020-09-18 18:50] LABS: Troponin(5th) Baseline 14 ng/L (0-10)
[2020-09-18 19:12] VITALS: O2SAT 96
--- NOTE | 2020-09-18 19:12 | PC.NURSE ---
Report from BERNY Pond
[2020-09-18 19:24] LABS: Add Urine Microscopic? YES; Bilirubin Urine Neg (Negative); Blood Urine Neg (Negative); Glucose Urine UA 1+ (Normal); Ketones Urine Negative (Negative); Leukocyte Esterase Urine Trace (Negative); Nitrate Urine Positive (Negative); Protein Urine Neg (Negative); Specific Gravity, Urine 1.005 (1.005-1.030); Urine Appearance SL Hazy (CLEAR); Urine Color Yellow (Yellow); Urobilinogen Urine Norm (Negative); pH Urine 7 (5-7)
[2020-09-18 19:25] LABS: Add Urine Culture? Yes; Bacteria Urine 3+ /hpf; Squamous Epithelial Cell Urine 0-4 /hpf (0-5)
[2020-09-18] MEDS: nitrofurantoin SR (BID) 100 mg Capsule PO (21:06)
[2020-09-18 21:09] VITALS: BP 157/80; PULSE 88; RESP 22; O2SAT 96
[2020-09-19 15:26] LABS: Coronavirus Test Green County Detected
== END 2020-09-18 21:10 | disposition home or self-care (01) ==
PROVIDERS: Family Medicine; Emergency Provider Emergency Medicine; PCP Internal Medicine
DX: N30.00 Acute cystitis without hematuria (principal); Z79.02 Long term (current) use of antithrombotics/antiplatelets; Z79.4 Long term (current) use of insulin; E78.5 Hyperlipidemia, unspecified; Z95.1 Presence of aortocoronary bypass graft; Z87.891 Personal history of nicotine dependence; U07.1 COVID-19
CPT/HCPCS: 36600; 71045; 80051; 80053; 81001; 82330; 82550; 82805; 83605; 83690; 84484; 85025; 87077; 87086; 87186; 87426; 87635; 93005; 99283

== ENCOUNTER 2020-09-20 19:03 | Emergency (ER) | payer MEDICARE, SELFPAY ==
[2020-09-20 20:30] VITALS: BP 144/84; PULSE 88; RESP 18; TEMP 36.7; O2SAT 95; BMI 21.9
--- NOTE | 2020-09-20 21:16 | ECG_ITS ---
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
== END 2020-09-20 23:38 | disposition left against medical advice (07) ==
LOC: ER 19:38
PROVIDERS: Emergency Provider Family Medicine; PCP Internal Medicine
DX: Z53.21 Procedure and treatment not carried out due to patient leaving prior to being seen by health care provider (principal)
CPT/HCPCS: 93005

== ENCOUNTER → 2021-08-01 14:42 | Outpatient (BNVA) | payer MEDICARE, SELFPAY | PROVIDERS: PCP Internal Medicine; Visit Provider Internal Medicine | DX: E61.1 Iron deficiency (principal); Z00.00 Encounter for general adult medical examination without abnormal findings; E11.42 Type 2 diabetes mellitus with diabetic polyneuropathy; R63.4 Abnormal weight loss; M19.031 Primary osteoarthritis, right wrist | CPT/HCPCS: 80053; 83036; 83550; 84443; 85025 ==

== ENCOUNTER 2022-01-22 12:20 | Outpatient (CLI) | payer MEDICARE, SELFPAY ==
--- NOTE | 2022-01-22 13:00 | XR_ITS ---
WS: [id number] DEXA (DUAL ENERGY X-RAY ABSORPTIOMETRY) Bone mineral density was performed using a Impact Engine machine. HISTORY: Loss of height COMPARISON: 10/02/2017 Lumbar spine BMD (L1-L4): 1.289 g/cm2 T score: 0.9 Z score: 2.7 Total hip BMD: Left: 0.751 g/cm2. T score: -2.0 Z score: 0.0 Right: 0.763 g/cm2. T score: -1.9 Z score: 0.1 10 year probability of a major osteoporotic fracture is 18.4%. Compared to the prior study from 10/02/2017. Lumbar spine bone mineral density has increased by 5.8%. Bilateral hips bone mineral density has decreased by 12.6%. XR/XR DEXA axial skeleton* [id number] IMPRESSION: OSTEOPENIA based upon the WHO classification for females. Significant decrease in bone mineral density within the hips since the prior . Bone mineral density has increased within the lumbar spine but this may be erroneous and related to increasing sclerosis and osteophytosis.
== END 2022-01-22 12:21 | disposition home or self-care (01) ==
LOC: RAD 12:23
PROVIDERS: PCP Internal Medicine; Visit Provider Internal Medicine
DX: R29.890 Loss of height (principal); M85.80 Other specified disorders of bone density and structure, unspecified site
CPT/HCPCS: 77080

== ENCOUNTER 2022-04-13 18:42 | Emergency (ER) | payer MEDICARE, SELFPAY ==
[2022-04-13 18:49] VITALS: BMI 21.9
[2022-04-13 18:51] VITALS: BP 155/74; PULSE 75; RESP 16; O2SAT 96
--- NOTE | 2022-04-13 18:57 | XRR_ITS ---
PROCEDURE INFORMATION: Exam: XR Left Shoulder Exam date and time: 04/13/2022 7:30 PM Age: 81 years old Clinical indication: Pain; Shoulder; Left; Additional info: Fall with left shoulder pain TECHNIQUE: Imaging protocol: Radiologic exam of the left shoulder. Views: 2 or more views. COMPARISON: CR XR chest 1V portable [id number] 09/18/2020 5:29 PM FINDINGS: Bones/joints: Rotator cuff calcific tendinitis. Mild glenohumeral and acromioclavicular joint osteoarthritis. Lungs: Left lower lobe atelectasis versus infiltrate. Soft tissues: Normal. XR/XR shoulder LT min 2V* [id number] IMPRESSION: 1. Negative for fracture or dislocation. 2. Rotator cuff calcific tendinitis. 3. Mild glenohumeral and acromioclavicular joint osteoarthritis. 4. Left lower lobe atelectasis versus infiltrate.
--- NOTE | 2022-04-13 19:51 | W.ED.FALL ---
HPI - Fall General: Chief Complaint: Fall Stated Complaint: Fell Left Shoulder Pain Time Seen by Provider: 04/13/22 18:58 History of Present Illness: Patient is an 81-year-old female that comes to the ED with left shoulder pain. Patient states that injury occurred yesterday. She was walking and tripped over a broom stick and she fell onto floor hitting her left shoulder. Denies any head trauma, loss of consciousness or headache. Patient was able to get back up on her own and states that her left shoulder was not bothering her that much yesterday after the injury. She says she was able to move left arm well. Today she woke up and is having 8 out of 10 pain in her left shoulder and Dors is decreased range of motion. Says the pain starts at the top of her left shoulder and radiates all the way down into her left hand. She has not taken anything for pain before coming to the ED. Denies any headache Associated symptoms-after fall: Denies abdominal pain, chest pain, headache(s), hematuria or neck pain Review of Systems Const: Denies: fever(s), chills or fatigue Eyes: Denies: change in vision or eye discomfort ENMT: Denies: throat pain, odynophagia, nasal discharge or nasal congestion Card: Denies: chest pain, palpitations, edema, swelling of feet/ankles, dyspnea on exertion or orthopnea Resp: Denies: dyspnea, productive cough or non-productive cough GI: Denies: abdominal pain, nausea, vomiting, diarrhea, constipation or hematochezia : Denies: flank pain, dysuria or hematuria Musc: Reports: extremity pain (Left shoulder pain) and limited range of motion (Left shoulder pain); Denies: neck pain, back pain or extremity swelling Skin/Breast: Denies: rash or new lesions Neuro: Denies: headache(s), numbness in extremities or weakness in extremities PFSH ED PFSH: Medical History GERD (gastroesophageal reflux disease) History of small bowel obstruction Hyperlipidemia, unspecified Hypothyroidism Surgical History H/O bladder repair surgery x3 H/O colonoscopy History of appendectomy History of cataract surgery History of coronary artery bypass graft (~1998) History of D&C History of esophagogastroduodenoscopy (EGD) (~05/27/13) History of heart artery stent History of hysterectomy History of throat surgery (~1965) removal of precancerous growth removed Status post debridement of bone spur Family History Father Alzheimers disease Social History Smoking and tobacco status: former smoker Alcohol intake: never Household members: spouse Housing: House Marital status: Physical Exam Const: COMMON NORMALS: no acute distress, patient oriented x3 and alert GENERAL APPEARANCE: cooperative and comfortable HENMT: COMMON NORMALS: normocephalic HEAD & SCALP: normocephalic MOUTH: Normal oral and palatal mucosa present THROAT: posterior oropharynx normal and uvula midline Neck/C-Spine: COMMON NORMALS: supple GENERAL: Yes normal visual inspection Resp: COMMON NORMALS: normal respiratory effort, No retractions, No use of accessory muscles and clear to auscultation bilaterally AUSCULTATION: clear to auscultation bilaterally Cardio: COMMON NORMALS: regular rate, regular rhythm, S1 normal heart sound present, S2 normal heart sound present, No gallops present (Cardio), No clicks present (Cardio), No murmurs present (Cardio) and Peripheral pulses 2+ throughout RATE: regular rate RHYTHM: regular rhythm HEART SOUNDS: S1 normal heart sound present and S2 normal heart sound present PERIPHERAL PULSES: Peripheral pulses 2+ throughout GI: COMMON NORMALS: Normal to inspection, nondistended, normoactive bowel sounds present, Soft to palpation, non-tender and no masses PALPATION: Yes Soft to palpation : COMMON NORMALS: Yes no CVA tenderness BLADDER/KIDNEY EXAM: Yes no CVA tenderness Back/Pelvis: COMMON NORMALS: no CVA tenderness Extremity: NARRATIVE EXTREMITY EXAM: Left shoulder?tenderness around AC joint. Limited range of motion due to pain. Neurovascular tact distally. Neuro: COMMON NORMALS: patient oriented x3 SENSORIUM/ORIENTATION: Yes alert GAIT: Yes Normal gait present Skin: GENERAL SKIN EXAM: dry skin Course Vital Signs: Vital signs: Vital Signs Pulse Rate 83 04/13/22 20:18 Respiratory Rate 18 04/13/22 20:18 Blood Pressure 155/74 04/13/22 18:51 Pulse Oximetry 99 04/13/22 20:18 Oxygen Delivery Me thod 04/13/22 18:51 MDM - Fall Medical Decision Making Patient is an 81-year-old female that comes to the ED with left shoulder pain. Patient states that injury occurred yesterday. She was walking and tripped over a broom stick and she fell onto floor hitting her left shoulder. Denies any head trauma, loss of consciousness or headache. Vitals are stable. Left shoulder?tenderness around AC joint. Limited range of motion due to pain. Neurovascular tact distally. Left shoulder x-ray shows no acute fractures but did note some AC joint osteoarthritis. Patient was put in a left shoulder sling and I placed an order with case management for patient be referred to Ortho for follow-up. She was discharged home with hydrocodone prescription to help with pain. Return ED precautions given. Patient understood agree with plan. Lab Data Radiology Impressions Shoulder X-Ray 04/13/22 18:57 IMPRESSION: 1. Negative for fracture or dislocation. 2. Rotator cuff calcific tendinitis. 3. Mild glenohumeral and acromioclavicular joint osteoarthritis. 4. Left lower lobe atelectasis versus infiltrate. Discharge Plan Discharge Patient Disposition: Home Clinical Impression: Osteoarthritis of AC (acromioclavicular) joint Injury of left shoulder Qualifiers: Encounter type: initial encounter Qualified Code(s): S49.92XA - Unspecified injury of left shoulder and upper arm, initial encounter Condition: Stable Prescriptions: No Action cholecalciferol (vitamin D3) 2,000 unit tablet 2,000 unit PO DAILY nitroglycerin 400 mcg/spray spray,non-aerosol See Rx Instructions .ROUTE .COMPLEX Rx Instructions: DIRECTED PRN (DME) DIABETIC SHOES WITH MOLDED INSERTS See Rx Instructions .Route .MEDSUPPLY Qty: 1 0RF Rx Instructions: As directed atorvastatin 40 mg tablet 40 mg PO QPM Qty: 90 3RF (DME) lancets [Accu-Chek Softclix Lancets] Misc See Rx Instructions .ROUTE .MEDSUPPLY Qty: 100 6RF Rx Instructions: check BG three times daily Bystolic 5 mg tablet 2.5 mg PO QAM Qty: 90 3RF Accu-Chek Kaye Plus test strp Strip See Rx Instructions .ROUTE .COMPLEX Qty: 100 0RF Dose Instruction: TEST 3 TIMES A DAY Rx Instructions: TEST 3 TIMES A DAY levothyroxine 25 mcg tablet 25 mcg PO QAM Qty: 90 3RF clopidogrel 75 mg tablet 75 mg PO QAM Qty: 90 3RF Levemir FlexTouch U-100 Insuln 100 unit/mL (3 mL) insulin pen 10 unit SUBCUT .AT BEDTIME Qty: 15 3RF trazodone 300 mg tablet 300 mg PO BEDTIME Qty: 90 1RF irbesartan 150 mg tablet 150 mg PO DAILY@12 Qty: 90 3RF tolterodine 4 mg capsule,extended release 24hr 4 mg PO BEDTIME Qty: 90 3RF (DME) pen needle, diabetic [Unifine Pentips] 32 gauge x 5/32 needle See Rx Instructions .ROUTE .MEDSUPPLY Qty: 100 5RF Rx Instructions: use twice daily with levemir Dexilant 60 mg capsule,biphase delayed releas 60 mg PO QAM Qty: 90 3RF Tylenol Extra Strength 500 mg Tablet 1,000 mg PO PRN Dayquil Caps 2 cap PO PRN Nyquil Caps 2 cap PO PRN Discharge Orders: Discharge ED (Routine); Ordered 04/13/22 Ordered By: Chintan Romero Referrals: Prince Augustin MD [Primary Care Provider] - Discharge Diet: Regular Discharge Activity: Limit activity as instructed Patient Instructions: Shoulder Pain (ED), Opioid Safety Activity Restrictions/Additional Instructions: Follow-up with medical provider as directed. Case management to work on diabetic several days set up an appointment with orthopedic doctor for follow-up on left shoulder pain and injury. Wear shoulder sling for the next couple days to help with healing. Make sure to do some left shoulder range of motion exercises daily to prevent frozen shoulder. Take medications as prescribed. Return to the ER or your medical provider if condition worsens. Please read and understand discharge instructions. Thank you for choosing [facility] for your healthcare needs today. Please realize this is an emergency room and that we are providing you with a medical screening exam and this may not be complete and all inclusive of all the testing and or work up that you may need to determine your ailment or severity of your illness. It is very important that you follow up as instructed or that you return to the Emergency Department should you have concerns or if your condition changes or worsens in any way. Coding Level of Care Code ED Travel Freight And Passenger Agent for Lynette Nair
[2022-04-13] MEDS: HYDROcodone-acetaminophen 7.5-325 mg Tablet 1 TAB PO (20:01)
[2022-04-13 20:18] VITALS: PULSE 83; RESP 18; O2SAT 99
--- NOTE | 2022-04-16 11:36 | DCPLANNER ---
Addendum entered by Dahiana Banuelos 04/17/22 14:22: nurse case manager received the following message from the ortho clinic regarding follow up appointment: spoke to patient - she said her arm/shoulder is doing better and the swelling has gone down. she does not want to follow up with any further treatment at this time. Original Note: nurse case manager had message to schedule a follow up appointment for patient with ortho. nurse case manager sent patients information to the front office staff at ortho. Patients information will be printed and reviewed. Clinic will call patient with appointment information.
== END 2022-04-13 20:20 | disposition home or self-care (01) ==
PROVIDERS: Emergency Provider Physician Assistant; PCP Internal Medicine
DX: M19.012 Primary osteoarthritis, left shoulder (principal); S49.92XA Unspecified injury of left shoulder and upper arm, initial encounter; Z79.02 Long term (current) use of antithrombotics/antiplatelets; Z79.4 Long term (current) use of insulin; Z87.891 Personal history of nicotine dependence; E78.5 Hyperlipidemia, unspecified; Z95.1 Presence of aortocoronary bypass graft; W18.09XA Striking against other object with subsequent fall, initial encounter
CPT/HCPCS: 73030; 99283

== ENCOUNTER → 2023-10-14 15:12 | Outpatient (BNVA) | payer MEDICARE, SELFPAY | PROVIDERS: PCP Internal Medicine; Visit Provider Podiatrist Foot & Ankle Surgery | DX: L60.3 Nail dystrophy (principal); Q82.8 Other specified congenital malformations of skin; M20.41 Other hammer toe(s) (acquired), right foot; M20.42 Other hammer toe(s) (acquired), left foot; E11.42 Type 2 diabetes mellitus with diabetic polyneuropathy; G62.9 Polyneuropathy, unspecified; Z79.4 Long term (current) use of insulin | CPT/HCPCS: 11055; 99203 ==

== ENCOUNTER → 2024-04-29 12:29 | Outpatient (BNVA) | payer MEDICARE, SELFPAY | PROVIDERS: PCP Internal Medicine; Visit Provider Nurse Practitioner Family | DX: L57.8 Other skin changes due to chronic exposure to nonionizing radiation (principal); L82.1 Other seborrheic keratosis; D18.01 Hemangioma of skin and subcutaneous tissue; D36.11 Benign neoplasm of peripheral nerves and autonomic nervous system of face, head, and neck; D36.12 Benign neoplasm of peripheral nerves and autonomic nervous system, upper limb, including shoulder; L81.4 Other melanin hyperpigmentation | CPT/HCPCS: 99203 ==